=== PATIENT | male | born 1945 ===

== ENCOUNTER 2024-10-04 09:53 | Outpatient (CLI) | payer MEDICARE, BC ==
--- NOTE | 2024-10-04 13:23 | RADIOLOGY REPORT ---
Indication: ABDOMINAL FISTULA Technique: CT axial images of the abdomen and pelvis are obtained without contrast. Coronal and sagit shaila reformats were obtained. Radiation Dose Information: CTDI volume is 23. mGy. Dose-length product is 1100 mGy*cm Comparison: None FINDINGS: There is limited interpretation of the abdomen and pelvis without administration of intravenous contr ast. Lung bases demonstrate small bilateral pleural effusions. Small pericardial effusion. Bibasilar ate lectasis/consolidation. Adrenal glands, spleen, pancreas are unremarkable in shape. Splenic calcifications consistent with r emote granulomatous disease Liver unremarkable in shape. No CT evidence for cholelithiasis. Hepatic calcification consistent with remote granulomatous disease. Kidneys demonstrate no hydronephrosis / nephrolithiasis. Stomach partially distended. Small bowel loops are moderately distended. Moderate volume stool in the colon. The enteric contrast reaches the distal small bowel. Postsurgical changes of the bowel in the right lower quadrant. There is an anterior abdominal wall defect. There is contrast seen extending external to the abdominal cavity into the skin surface /drainage bag. Ple ase refer to axial image 77/132 and sagittal image 72/134. In the region of the right lower quadrant near the area of postsurgical change, there is a region containing contrast that appears to be blind measuring 1.7 x 0.8 cm, axial image 77 of 132. Abdominal aortic atherosclerotic disease. Iliac artery stents. Bladder contracted. No inguinal lymph adenopathy. Moderate to advanced thoracolumbar degenerative disc disease. Moderate to advanced lumbar facet hyper trophic changes. IMPRESSION: Limited evaluation without contrast. 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 Small region of contrast in a blind ending structure in the right lower quadrant near the region of s urgical anastomosis /changes measuring 1.7 x 0.8 cm could represent a contained leak. Correlate clin ically. Surgical consultation recommended for further management. Small bilateral pleural effusions. Bibasilar atelectasis / consolidation. Small pericardial effusion. Atherosclerotic disease. Other findings as described
== END 2024-10-04 23:59 | disposition home or self-care (01) ==
LOC: RAD 09:53
PROVIDERS: ATTEND Internal Medicine
DX: K31.89 Other diseases of stomach and duodenum (principal); N32.89 Other specified disorders of bladder; K76.89 Other specified diseases of liver; J90 Pleural effusion, not elsewhere classified; I31.39 Other pericardial effusion (noninflammatory); I70.90 Unspecified atherosclerosis; M51.35 Other intervertebral disc degeneration, thoracolumbar region; M47.816 Spondylosis without myelopathy or radiculopathy, lumbar region; I70.0 Atherosclerosis of aorta; M25.18 Fistula, other specified site; Z98.890 Other specified postprocedural states
CPT/HCPCS: 74176